=== PATIENT | male | born 1980 | race African-American/Black ===

== ENCOUNTER 2018-03-12 10:17 | Emergency (ER) | payer MEDICAID, MEDICARE ==
[~2018-03-12] VITALS: Ht 180.3 cm; Wt 98.0 kg
[2018-03-12] MEDS ORDERED: CEFTRIAXONE SODIUM 250 MG/VIAL IM ONE (14:45)
[2018-03-12] MEDS ORDERED: AZITHROMYCIN 500 MG TABLET PO ONE (14:45)
[2018-03-12 16:13] VITALS: BP 123/73
[2018-03-18 04:15] LABS: CHLAMYDIA TRACHOMATIS NAA Negative (Negative); NEISSERIA GONORRHOEAE NAA Negative (Negative)
== END 2018-03-12 16:20 | disposition home or self-care (01) ==
LOC: ER 10:17
DX: B35.6 Tinea cruris (principal)
CPT/HCPCS: 87491; 87591; 96372; 99284; J0696; Z7610

== ENCOUNTER 2018-03-20 10:59 | Emergency (ER) | payer MEDICARE ==
[~2018-03-20] VITALS: Ht 180.3 cm; Wt 98.0 kg
[2018-03-20 11:07] VITALS: BP 121/68
== END 2018-03-20 11:29 | disposition home or self-care (01) ==
LOC: ER 11:23
DX: F12.10 Cannabis abuse, uncomplicated (principal); F17.200 Nicotine dependence, unspecified, uncomplicated; Z71.2 Person consulting for explanation of examination or test findings; Z98.890 Other specified postprocedural states
CPT/HCPCS: 99281

== ENCOUNTER 2018-07-21 09:42 | Emergency (ER) | payer MEDICARE ==
[~2018-07-21] VITALS: Ht 180.3 cm; Wt 100.0 kg
[2018-07-21] MEDS ORDERED: FLUORESCEIN SODIUM 1MG/STRIP OP ONE (10:30)
[2018-07-21] MEDS ORDERED: TETRACAINE 0.5% OPHTH DROPS 4ML OP ONE (10:30)
[2018-07-21 12:02] VITALS: BP 127/71
== END 2018-07-21 12:04 | disposition home or self-care (01) ==
LOC: ER 10:15
DX: H00.012 Hordeolum externum right lower eyelid (principal); F12.10 Cannabis abuse, uncomplicated; Z98.890 Other specified postprocedural states
CPT/HCPCS: 99283

== ENCOUNTER 2018-10-06 16:33 | Emergency (ER) | payer MEDICARE ==
[~2018-10-06] VITALS: Ht 180.3 cm; Wt 91.0 kg
[2018-10-06] MEDS ORDERED: CEFTRIAXONE SODIUM 250 MG/VIAL IM ONE (18:30)
[2018-10-06] MEDS ORDERED: AZITHROMYCIN 500 MG TABLET PO ONE (18:30)
[2018-10-06 19:36] VITALS: BP 128/53
== END 2018-10-06 19:36 | disposition home or self-care (01) ==
LOC: ER 16:33
DX: A64 Unspecified sexually transmitted disease (principal); F17.200 Nicotine dependence, unspecified, uncomplicated; F12.10 Cannabis abuse, uncomplicated; Z98.890 Other specified postprocedural states
CPT/HCPCS: 96372; 99283; J0696

== ENCOUNTER 2018-12-09 10:11 | Emergency (ER) | payer MEDICARE ==
[~2018-12-09] VITALS: Ht 180.3 cm; Wt 91.0 kg
[2018-12-09 10:20] VITALS: BP 128/65
[2018-12-09 12:08] LABS: CLARITY URINE CLEAR (CLEAR); COLOR URINE YELLOW (YELLOW); KETONES URINE NEGATIVE (NEGATIVE); LEUKOCYTE ESTERASE URINE NEGATIVE (NEGATIVE); NITRITE URINE NEGATIVE (NEGATIVE); OCCULT BLOOD URINE NEGATIVE (NEGATIVE); PROTEIN URINE NEGATIVE (NEGATIVE); SPECIFIC GRAVITY URINE 1.024 (1.005-1.030)
[2018-12-09] MEDS ORDERED: AZITHROMYCIN 500 MG TABLET PO ONE (12:30)
[2018-12-09] MEDS ORDERED: CEFTRIAXONE SODIUM 250 MG/VIAL IM ONE (12:30)
== END 2018-12-09 12:56 | disposition home or self-care (01) ==
LOC: ER 10:11
DX: A64 Unspecified sexually transmitted disease (principal); Z87.828 Personal history of other (healed) physical injury and trauma; Z98.890 Other specified postprocedural states
CPT/HCPCS: 81003; 96372; 99283; J0696

== ENCOUNTER 2019-11-11 08:04 | Emergency (ER) | payer MEDICARE ==
[~2019-11-11] VITALS: Ht 175.3 cm; Wt 89.0 kg
[2019-11-11 08:58] LABS: CLARITY URINE CLEAR (CLEAR); COLOR URINE YELLOW (YELLOW); KETONES URINE NEGATIVE (NEGATIVE); LEUKOCYTE ESTERASE URINE NEGATIVE (NEGATIVE); NITRITE URINE NEGATIVE (NEGATIVE); OCCULT BLOOD URINE NEGATIVE (NEGATIVE); PH URINE 5.5 (4.5-8.0); PROTEIN URINE NEGATIVE (NEGATIVE); SPECIFIC GRAVITY URINE 1.027 (1.005-1.030)
[2019-11-11 09:13] VITALS: BP 111/62
== END 2019-11-11 09:14 | disposition home or self-care (01) ==
LOC: ER 08:04
DX: Z20.2 Contact with and (suspected) exposure to infections with a predominantly sexual mode of transmission (principal); F12.10 Cannabis abuse, uncomplicated; Z87.828 Personal history of other (healed) physical injury and trauma; Z98.890 Other specified postprocedural states
CPT/HCPCS: 81003; 99283

== ENCOUNTER 2019-11-18 06:12 | Emergency (ER) | payer MEDICAID, MEDICARE ==
[~2019-11-18] VITALS: Ht 175.3 cm; Wt 84.0 kg
[2019-11-18 06:19] VITALS: BP 114/79
== END 2019-11-18 06:46 | disposition home or self-care (01) ==
LOC: ER 06:32
DX: A60.01 Herpesviral infection of penis (principal); F12.10 Cannabis abuse, uncomplicated
CPT/HCPCS: 99281; 99283

== ENCOUNTER 2022-07-08 12:59 | Emergency (ER) | payer MEDICAID, OTHER ==
[~2022-07-08] VITALS: Ht 180.3 cm; Wt 96.3 kg
[2022-07-08 13:40] VITALS: BP 125/70
[2022-07-09] MEDS ORDERED: ACET-2084 MT (11:17)
[2022-07-09] MEDS ORDERED: CEPH125S26 MT (11:20)
[2022-07-09] MEDS ORDERED: SULF1TAB48 MT (11:20)
== END 2022-07-08 18:44 | disposition left against medical advice (07) ==
LOC: ER 12:59
DX: Z53.21 Procedure and treatment not carried out due to patient leaving prior to being seen by health care provider (principal)
CPT/HCPCS: 99281

== ENCOUNTER 2022-07-09 07:39 | Emergency (ER) | payer OTHER ==
[~2022-07-09] VITALS: Ht 167.6 cm; Wt 78.0 kg
[2022-07-09 07:48] VITALS: BP 132/96
[2022-07-09] MEDS ORDERED: ACET-2084 MT (11:17)
[2022-07-09] MEDS ORDERED: CEPH125S26 MT (11:20)
[2022-07-09] MEDS ORDERED: SULF1TAB48 MT (11:20)
== END 2022-07-09 11:45 | disposition home or self-care (01) ==
LOC: ER 07:39
DX: L03.115 Cellulitis of right lower limb (principal)
CPT/HCPCS: 99283